=== PATIENT | male | born 1980 | race Caucasian/White ===

== ENCOUNTER → 2016-08-30 | Day surgery (SDC) | payer OTHER ==
[2016-08-29 07:37] VITALS: Ht 180.3 cm; Wt 154.6 kg
[~2016-08-30] VITALS: Ht 180.3 cm; Wt 154.6 kg
[~2016-08-30] MED LIST: CHOL1000 PO; DICL-201 PO; GLIP2.5T11 PO; LIDOCAINE HCL 2% 2 ML VIAL (20MG/ML) ONE; METF-384 PO; MISCCAP80 PO; PRLSR20 PO; PROPOFOL IV EMULSION 10 MG/ML 20 ML VIAL IV ONE; SODIUM CHLORIDE 0.9% 500ML 500 ML IV ONE; VALS-56 PO
--- NOTE | 2016-08-30 09:01 | Endo History and Physical ---
History & Physical Date of Service: Aug 30, 2016. Chief Complaint: Reflux, chest pain Referring Physician: Melissa History of Present Illness chest pain Past Medical History Diabetes, Sleep Apnea Past Surgical History Hx Cardiac Surgery: No Hx Internal Defibrillator: No Hx Pacemaker: No Hx Abdominal Surgery: Yes (UMBILICAL HERNIA X 2) Hx of Implantable Prosthesis: No Hx Post-Op Nausea and Vomiting: No Hx Cancer Surgery: No Hx Thoracic Surgery: No Hx Orthopedic: No Hx Urinary Tract Surgery: No Family History None Social History Smoking Status: Never Smoker Hx Substance Use: No Hx Alcohol Use: Yes (RARELY) Allergies Coded Allergies: Dicyclomine (Verified Allergy, Unknown, HIVES, 08/30/16) Hyoscyamine (Verified Allergy, Unknown, HIVES, 08/30/16) Lisinopril (Verified Adverse Reaction, Mild, COUGH, 08/30/16) Current Medications Reported Home Medications Medications Dose Route/Sig Max Daily Dose Days Date Category Dose Instructions Probiotic (Probiotic Product) 1 Cap Cap 1 Cap PO QAM 08/29/16 Reported Voltaren (Diclofenac Sodium) 75 Mg Tabcr 75 Mg PO BID 08/29/16 Reported WITH FOOD Vitamin D3 (Cholecalciferol) 1,000 Unit Tab 1 Tab PO HS 90 08/29/16 Reported Prilosec (Omeprazole) 20 Mg Capcr 20 Mg PO BID 08/29/16 Reported Glipizide Er (Glipizide) 2.5 Mg Tab 1 Tab PO HS 90 08/29/16 Reported Valsartan 40 Mg Tab 40 Mg PO HS 08/03/14 Reported Glucophage (Metformin Hcl) 1,000 Mg Tab 1,000 Mg PO BIDM 08/03/14 Reported Vital Signs Weight (Kilograms): 154.55 Height (Feet): 5 Height (Inches): 11 Date Time Temp Pulse Resp B/P Pulse Ox O2 Delivery O2 Flow Rate FiO2 08/30/16 08:45 36.6 82 18 147/88 96 Room Air Physical Exam General Appearance: no apparent distress Respiratory/Chest: Respiratory effort: no dyspnea Cardiovascular: Heart Auscultation: RRR Abdomen: Inspection & Palpation: soft Liver: non-tender Assessment and Plan stable for EGD.
--- NOTE | 2016-08-30 09:23 | Discharge Instructions ---
Endoscopy Patient Instructions Date / Procedure(s) Performed Aug 30, 2016. EGD Allergy Information Coded Allergies: Dicyclomine (Verified Allergy, Unknown, HIVES, 08/30/16) Hyoscyamine (Verified Allergy, Unknown, HIVES, 08/30/16) Lisinopril (Verified Adverse Reaction, Mild, COUGH, 08/30/16) Discharge Date / Findings Aug 30, 2016. normal EGD Provider Instructions Activity Restrictions - No exercising or heavy lifting for 24 hours. - Do not drink alcohol the day of the procedure. - Do not drive a car or operate machinery until the day after the procedure. - Do not make any important decisions or sign important papers in 24 hours after the procedure. Following Day: - Return to full activity which may include returning to work/school. Diet Start your diet with liquids and light foods (jello, soup, juice, toast). Then eat your usual diet if not nauseated. Treatment For Common After Affects For mild abdominal pain, bloating, or excessive gas: - Rest - Eat lightly - Lie on right side Follow-Up Information Follow-up with Melissa as scheduled Anesthesia Information What You Should Know You have had a procedure that required some medicine to reduce anxiety and discomfort. This treatment is called moderate sedation. After receiving the treatment, you may be sleepy, but you will be able to breathe on your own. The effects of the treatment may last for several hours. Follow these instructions along with Activity/Diet recommendations noted above: * Do NOT do anything where dizziness or clumsiness would be dangerous. * Rest quietly at home today, then you can be up and about tomorrow. * Have a responsible person stay with you the rest of today. * You may have had an I.V. today. If so, you may take the dressing off later today. Recommendations Call your doctor if: * Trouble breathing * Continuous vomiting for more than 24 hours * Temperature above 101 degrees * Severe abdominal pain or bloating * Pain not relieved by pain medicine ordered * There is increased drainage or redness from any incision * A large amount of rectal bleeding greater than 2-3 tablespoons. (If you had a polyp/s removed or have hemorrhoids, a small amount of blood - from the rectum is to be expected.) * You have any unanswered questions or concerns. IN THE EVENT OF A SERIOUS EMERGENCY, GO TO THE NEAREST EMERGENCY ROOM Your discharge instructions were prepared by provider Javy Anders. Patient Instructions Signature Page Branden Louise Patient (or Guardian) Signature/Date: I have read and understand the instructions given to me by my caregivers. Caregiver/RN/Doctor Signature/Date: The above-named patient and/or guardian has received patient instructions on this date. + Original Patient Signature Page (only) stays with chart. Please make copy for patient.
--- NOTE | 2016-08-30 09:24 | GI REPORT ---
Procedure Date: 08/30/2016 8:53 AM Procedure: Upper GI endoscopy Indications: Epigastric abdominal pain, Unexplained chest pain Medicines: See the Anesthesia note for documentation of the administered medications Complications: No immediate complications. Estimated Blood Loss: Estimated blood loss: none. Procedure: Pre-Anesthesia Assessment: - Prior to the procedure, a History and Physical was performed, and patient medications, allergies and sensitivities were reviewed. The patient's tolerance of previous anesthesia was reviewed. - The risks and benefits of the procedure and the sedation options and risks were discussed with the patient. All questions were answered and informed consent was obtained. - Patient identification and proposed procedure were verified prior to the procedure by the physician and the nurse. The procedure was verified in the pre-procedure area. - Pre-procedure physical examination revealed no contraindications to sedation. - After reviewing the risks and benefits, the patient was deemed in satisfactory condition to undergo the procedure. After obtaining informed consent, the endoscope was passed under direct vision. Throughout the procedure, the patient's blood pressure, pulse, and oxygen saturations were monitored continuously. The scope was introduced through the mouth, and advanced to the third part of duodenum. The upper GI endoscopy was accomplished without difficulty. The patient tolerated the procedure well. Findings: The esophagus was normal. The stomach was normal. The examined duodenum was normal. The cardia and gastric fundus were normal on retroflexion. Impression: - Normal esophagus. - Normal stomach. - Normal examined duodenum. - No specimens collected. Recommendation: - Discharge patient to home. Javy Anders M.D. Javy Anders MD 08/30/2016 9:23:46 AM This report has been signed electronically. Note Initiated On: 08/30/2016 8:53 AM I attest to the content of the Intraoperative Record and orders documented therein, exceptions below
--- NOTE | 2016-08-30 09:29 | Anesthesiology Progress Note ---
Anesthesia Post Op Note Date & Time Aug 30, 2016 at 09:29 Vital Signs Pain Intensity: 0 Vital Signs Past 12 Hours Date Time Temp Pulse Resp B/P Pulse Ox O2 Delivery O2 Flow Rate FiO2 08/30/16 09:22 36.6 78 18 129/94 98 Room Air 08/30/16 08:45 36.6 82 18 147/88 96 Room Air Notes Mental Status: alert / awake / arousable, participated in evaluation Pt Amnestic to Procedure: Yes Nausea / Vomiting: adequately controlled Pain: adequately controlled Airway Patency, RR, SpO2: stable & adequate BP & HR: stable & adequate Hydration State: stable & adequate Anesthetic Complications: no major complications apparent
[2016-08-30 09:50] VITALS: BP 130/62; PULSE 77; O2SAT 98
== END | disposition home or self-care (01) ==
LOC: C.GI 08:23
PROVIDERS: ATTEND Internal Medicine Gastroenterology
DX: R10.13 Epigastric pain (principal); R07.9 Chest pain, unspecified; K21.9 Gastro-esophageal reflux disease without esophagitis; E11.9 Type 2 diabetes mellitus without complications; G47.30 Sleep apnea, unspecified

== ENCOUNTER 2017-08-24 18:50 | Inpatient (IN) | payer OTHER ==
[~2017-08-24] VITALS: Ht 180.3 cm; Wt 151.4 kg
[~2017-08-24 18:50] MED LIST changes: -LIDOCAINE HCL 2% 2 ML VIAL (20MG/ML) ONE; -PROPOFOL IV EMULSION 10 MG/ML 20 ML VIAL IV ONE; -SODIUM CHLORIDE 0.9% 500ML 500 ML IV ONE
[2017-08-24] MEDS ORDERED: ONDANSETRON INJ 2 MG/ML 2 ML VIAL IV STA (19:12)
[2017-08-24] MEDS ORDERED: MoRPHine SULFATE 10 MG/ML CARP/VIAL IV STA (19:12)
[2017-08-24] MEDS ORDERED: SODIUM CHLORIDE 0.9% 1000ML 1,000 ML IV STA (19:12)
[2017-08-24 19:29] LABS: BASO % 0.2 %; BASO ABS # 0.02 K/uL (0-0.2); EOS % 0.4 %; EOS ABS # 0.05 K/uL (0-0.5); HEMATOCRIT 44.4 % (42-52); HEMOGLOBIN 15.4 g/dL (14.0-18.0); IG# 0.04 K/uL (0.00-0.02); LYMPH % 14.3 %; LYMPH ABS # 1.78 K/uL (1.2-3.4); MEAN CELL VOLUME 82.7 fL (80-100); MEAN CORPUSCULAR HEMOGLOBIN 28.7 pg (25-34); MEAN CORPUSCULAR HGB CONC 34.7 g/dl (32-36); MEAN PLATELET VOLUME 9.9 fL (7.4-10.4); MONO % 4.5 %; MONO ABS # 0.56 K/uL (0.11-0.59); NEUT % 80.3 %; NEUT ABS # 10.03 K/uL (1.4-6.5); PLATELET COUNT 295 K/uL (130-400); RED CELL DISTRIBUTION WIDTH CV 13.6 % (11.5-14.5); RED CELL DISTRIBUTION WIDTH SD 40.4 fL (36.4-46.3); WHITE BLOOD COUNT 12.48 K/uL (4.8-10.8)
[2017-08-24] MEDS ORDERED: OPTIRAY 320 IV PRN (19:30)
[2017-08-24 19:39] LABS: ISTAT CREATININE 1.3 mg/dl (0.6-1.3); ISTAT IONIZED CALCIUM 1.16 mmol/l (1.12-1.32); ISTAT POTASSIUM 3.5 mEq/L (3.3-5.0)
[2017-08-24 19:42] LABS: PTT PATIENT 21.7 SECONDS (21.0-31.0)
[2017-08-24 19:50] LABS: ALT/SGPT 95 U/L (12-78); AST/SGOT 74 U/L (15-37); BLOOD UREA NITROGEN 17 mg/dl (7-18); CALCIUM 9.3 mg/dl (8.5-10.1); CARBON DIOXIDE 26 mmol/L (21-32); CREATININE 1.46 mg/dl (0.60-1.40); GLUCOSE 207 mg/dl (70-99); LIPASE 132 U/L (73-393); POTASSIUM 3.5 mmol/L (3.5-5.1); SODIUM 134 mmol/L (136-145)
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
[2017-08-24 19:55] LABS: ALKALINE PHOSPHATASE 105 U/L (45-117); TOTAL PROTEIN 8.4 gm/dl (6.4-8.2)
[2017-08-24] MEDS ORDERED: HYDROmorphone INJ 0.5 MG/0.5 ML SYR IV STA (19:58)
[2017-08-24] MEDS ORDERED: DIPHTHERIA/TETANUS/PERTUSSIS 0.5 ML SYR/VIAL IM. ONE (20:00)
[2017-08-24] MEDS ORDERED: HYD50 PO (20:12)
[2017-08-24] MEDS ORDERED: VALS-57 PO (20:12)
[2017-08-24] MEDS ORDERED: METF500T5 PO (20:12)
[2017-08-24] MEDS ORDERED: GLIP-197 PO (20:12)
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
[2017-08-24] MEDS ORDERED: ONDANSETRON INJ 2 MG/ML 2 ML VIAL IV PRN (22:00)
[2017-08-24] MEDS ORDERED: ACETAMINOPHEN 325 MG TAB PO PRN (22:00)
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
[2017-08-24 22:45] VITALS: BP 142/85; PULSE 96; TEMP 37.3; O2SAT 98; Ht 180.3 cm; Wt 151.4 kg
[2017-08-24] MEDS: KETOROLAC TROMETHAMINE 30 MG/ML VIAL IV. PRN (22:55)
[2017-08-24] MEDS: MoRPHine SULFATE 2 MG/ML CARP IV PRN (22:56)
[2017-08-24] MEDS: SODIUM CHLORIDE 0.9% 1000ML 1,000 ML IV SCH ×2 (23:15→23:22)
[2017-08-24 23:28] VITALS: BP 134/76; PULSE 99; TEMP 37.6; O2SAT 94
[2017-08-25] VITALS (7 sets, daily range): BP systolic 122–138; BP diastolic 70–88; PULSE 69–87; TEMP 36.5–37.2; O2SAT 94–99
[2017-08-25] MEDS ORDERED: GLUCOSE 10 TABS/TUBE PO PRN (00:45)
[2017-08-25] MEDS ORDERED: DEXTROSE 50% 50 ML SYR IV PRN (00:45)
[2017-08-25] MEDS ORDERED: GLUCAGON FOR INJ 1 MG VIAL SQ PRN (00:45)
[2017-08-25] MEDS ORDERED: GLUCOSE 40% GEL 15 GM TUBE PO PRN (00:45)
[2017-08-25] MEDS: KETOROLAC TROMETHAMINE 30 MG/ML VIAL IV. PRN ×3 (05:20→18:53)
[2017-08-25] MEDS: MoRPHine SULFATE 2 MG/ML CARP IV PRN ×2 (05:20→16:47)
--- NOTE | 2017-08-25 07:23 | DIAGNOSTIC IMAGING REPORT ---
CHEST ONE VIEW PORTABLE CLINICAL HISTORY: 37 years-old Male presenting with Right Pneumothorax. TECHNIQUE: Portable upright AP view of the chest was obtained. COMPARISON: CT chest from 08/24/2017. FINDINGS: Patient body habitus degrades evaluation. Prominence of the cardiomediastinal silhouette may relate to lipomatosis. Mildly low lung volumes with hypoventilatory changes. Minimal basilar opacities. No pleural effusion or pneumothorax. Right rib fractures better appreciated on most recent CT. Upper abdomen normal. IMPRESSION: 1. No radiographically apparent large pneumothorax allowing for portable technique and body habitus. 2. Mildly low lung volumes with hypoventilatory changes. Electronically signed by: Pola Celeste M.D. 08/25/2017 7:22 AM Dictated Date/Time: 08/25/2017 7:20 AM
[2017-08-25] MEDS ORDERED: METFORMIN HCL 500 MG TABCR PO SCH (07:30)
[2017-08-25 07:55] LABS: BASO % 0.1 %; BASO ABS # 0.01 K/uL (0-0.2); EOS % 0.2 %; EOS ABS # 0.02 K/uL (0-0.5); HEMATOCRIT 38.5 % (42-52); HEMOGLOBIN 13.5 g/dL (14.0-18.0); IG# 0.02 K/uL (0.00-0.02); LYMPH % 16.2 %; LYMPH ABS # 1.68 K/uL (1.2-3.4); MEAN CORPUSCULAR HEMOGLOBIN 29.1 pg (25-34); MEAN CORPUSCULAR HGB CONC 35.1 g/dl (32-36); MEAN PLATELET VOLUME 9.6 fL (7.4-10.4); MONO % 8.3 %; MONO ABS # 0.86 K/uL (0.11-0.59); NEUT ABS # 7.76 K/uL (1.4-6.5); PLATELET COUNT 258 K/uL (130-400); RED CELL DISTRIBUTION WIDTH CV 13.7 % (11.5-14.5); RED CELL DISTRIBUTION WIDTH SD 41.3 fL (36.4-46.3); WHITE BLOOD COUNT 10.35 K/uL (4.8-10.8)
[2017-08-25 08:10] LABS: CALCIUM 8.4 mg/dl (8.5-10.1); CREATININE 1.3 mg/dl (0.60-1.40); POTASSIUM 3.3 mmol/L (3.5-5.1)
[2017-08-25] MEDS: HYDROCHLOROTHIAZIDE 50 MG TAB PO SCH (09:20)
[2017-08-25] MEDS: VALSARTAN 80 MG TAB PO SCH (09:20)
[2017-08-25] MEDS: INSULIN ASPART 100 UNITS/ML 3 ML PEN SC SCH ×4 (09:22→20:30)
[2017-08-25] MEDS: INSULIN GLARGINE SOLOSTAR 100 UNITS/ML 3 ML PEN SC SCH ×2 (09:22→20:30)
[2017-08-25] MEDS ORDERED: POTASSIUM CHLORIDE 20 MEQ TABCR PO ONE (10:15)
--- NOTE | 2017-08-25 11:24 | SURGERY PROGRESS NOTE ---
DATE: 08/25/2017 SUBJECTIVE: Mr. Louise looks better today. He is moving air better. His x-ray shows no evidence of progressive enlargement of a pneumothorax or a contusion. I had a long talk with him. We are going to stop his IV fluids, get him up moving and walk up and down the hallways. It was extremely important for him to use his spirometer. If his x-ray is stable tomorrow morning, we may allow him to go home. He is still in considerable amount of pain.
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
[2017-08-25] MEDS ORDERED: NURSING VERBAL MED ORDER ONE (13:00)
[2017-08-25] MEDS ORDERED: NEOMYCIN/POLYMYX/BACITR OINT 15 GM TUBE EXT PRN (13:30)
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
[2017-08-25] MEDS ORDERED: CHOLECALCIFEROL 1000 INTER.UNIT TAB PO SCH (21:00)
[2017-08-26] MEDS: MoRPHine SULFATE 2 MG/ML CARP IV PRN ×2 (02:21→10:54)
[2017-08-26] MEDS: KETOROLAC TROMETHAMINE 30 MG/ML VIAL IV. PRN ×2 (02:22→09:11)
[2017-08-26 04:05] VITALS: BP 137/73; PULSE 86; TEMP 37.3; O2SAT 93
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
[2017-08-26 07:39] VITALS: BP 123/73; PULSE 80; TEMP 37.2; O2SAT 94
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
[2017-08-26] MEDS: HYDROCHLOROTHIAZIDE 50 MG TAB PO SCH (07:56)
[2017-08-26] MEDS: VALSARTAN 80 MG TAB PO SCH (07:56)
[2017-08-26] MEDS: INSULIN ASPART 100 UNITS/ML 3 ML PEN SC SCH ×2 (07:57→08:10)
[2017-08-26] MEDS: INSULIN GLARGINE SOLOSTAR 100 UNITS/ML 3 ML PEN SC SCH (07:58)
[2017-08-26] MEDS ORDERED: RXC5 PO (08:42)
[2017-08-26] MEDS ORDERED: DOCU-94 PO (08:45)
[2017-08-26] MEDS ORDERED: IBUP-1050 PO (08:45)
[2017-08-26] MEDS ORDERED: ACET-1047 PO (08:45)
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
[2017-08-26 09:23] LABS: CALCIUM 8.6 mg/dl (8.5-10.1); CREATININE 1.31 mg/dl (0.60-1.40); POTASSIUM 3.2 mmol/L (3.5-5.1)
[2017-08-26 09:26] VITALS: BP 123/73; PULSE 80; TEMP 37.2; O2SAT 94
[2017-08-26] MEDS ORDERED: NURSING VERBAL MED ORDER ONE (10:30)
[2017-08-26] MEDS ORDERED: POTASSIUM CHLORIDE 20 MEQ TABCR PO ONE (10:45)
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
== END 2017-08-26 12:01 | disposition home or self-care (01) | DRG 183 ==
LOC: EDBD 18:50 → C.EDC 18:51 → C.2T 22:07 → ENRESERV 22:13
PROVIDERS: ADMIT Surgery; ATTEND Surgery
DX: S22.41XA Multiple fractures of ribs, right side, initial encounter for closed fracture (principal); S27.2XXA Traumatic hemopneumothorax, initial encounter; S05.42XA Penetrating wound of orbit with or without foreign body, left eye, initial encounter; Z68.42 Body mass index [BMI] 45.0-49.9, adult; V28.4XXA Motorcycle driver injured in noncollision transport accident in traffic accident, initial encounter; E11.9 Type 2 diabetes mellitus without complications; I10 Essential (primary) hypertension; G47.33 Obstructive sleep apnea (adult) (pediatric); E66.01 Morbid (severe) obesity due to excess calories; Y92.410 Unspecified street and highway as the place of occurrence of the external cause; Y93.89 Activity, other specified; Y99.8 Other external cause status; Z99.89 Dependence on other enabling machines and devices; Z98.890 Other specified postprocedural states; Z79.84 Long term (current) use of oral hypoglycemic drugs; Z79.899 Other long term (current) drug therapy; Z88.8 Allergy status to other drugs, medicaments and biological substances; Z82.49 Family history of ischemic heart disease and other diseases of the circulatory system; Z80.7 Family history of other malignant neoplasms of lymphoid, hematopoietic and related tissues

== ENCOUNTER → 2017-09-02 | Outpatient (CLI) | payer OTHER ==
[~2017-09-02] MED LIST changes: +ACET-1047 PO; -DICL-201 PO; +DOCU-94 PO; +GLIP-197 PO; -GLIP2.5T11 PO; +HYD50 PO; +IBUP-1050 PO; -METF-384 PO; +METF500T5 PO; -MISCCAP80 PO; -PRLSR20 PO; +RXC5 PO; -VALS-56 PO; +VALS-57 PO
--- NOTE | 2017-09-02 12:09 | DIAGNOSTIC IMAGING REPORT ---
CHEST 2 VIEWS ROUTINE CLINICAL HISTORY: S22.39XA Rib [id number] COMPARISON STUDY: 08/26/2017 FINDINGS: The heart remains normal in size. There is persistent superior mediastinal widening. There is no focal pulmonary consolidation. There are minor atelectatic changes at the left lung base. There are multiple right-sided rib fractures. There are no significant pleural effusions.[ IMPRESSION: 1. Multiple right-sided rib fractures. No pneumothorax 2. Stable superior mediastinal widening consistent with mediastinal fat deposition. 3. No evidence of acute parenchymal consolidation Electronically signed by: Ravinder Siu M.D. 09/02/2017 12:08 PM Dictated Date/Time: 09/02/2017 12:06 PM
== END | disposition home or self-care (01) ==
LOC: C.RAD1850 11:48
PROVIDERS: ATTEND Surgery
DX: S22.41XA Multiple fractures of ribs, right side, initial encounter for closed fracture (principal); X58.XXXA Exposure to other specified factors, initial encounter

== ENCOUNTER → 2017-09-26 | Outpatient (CLI) | payer OTHER ==
[~2017-09-26] MED LIST changes: -DOCU-94 PO
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
== END | disposition home or self-care (01) ==
LOC: C.RAD1850 09:13
PROVIDERS: ATTEND Physician Assistant
DX: S22.42XA Multiple fractures of ribs, left side, initial encounter for closed fracture (principal); X58.XXXA Exposure to other specified factors, initial encounter